=== PATIENT | female | born 1945 | race Caucasian/White ===

== ENCOUNTER 2018-07-08 15:01 | Inpatient (IN) | payer MEDICARE, OTHER ==
[~2018-07-08] VITALS: Ht 165.1 cm; Wt 67.1 kg
[2018-07-08] MEDS ORDERED: ASPIRIN 81 MG TABLET CHEW ONE (15:19)
[2018-07-08] MEDS ORDERED: ASPIRIN 81 MG TABLET CHEW PO ONE (15:30)
[2018-07-08] MEDS ORDERED: PLEASE ENTER HEIGHT AND WEIGHT MC SCH (15:30)
[2018-07-08] MEDS ORDERED: PLEASE ENTER ALLERGIES MC SCH (15:30)
--- NOTE | 2018-07-08 15:38 | NUR ---
patient safe in [facility], accompanied by significant other, lab and xray have been to bedside, patient reports 5/10 chest pain when laying on sides and back, but has noticed the pain sometimes subsides if laying on her stomach. onse was thursday night, no pain now sitting up in bed. VSS on room air, medicated with chewable ASA per AUG, PWD, conversant and pleasant, no additional needs at this time.
[2018-07-08 15:46] LABS: BASOPHILS # (AUTO) 0.06 x10^3/uL (0-0.1); BASOPHILS % (AUTO) 1 % (0-1); EOSINOPHILS % (AUTO) 1 % (1-7); LYMPHOCYTES # (AUTO) 1.67 x10^3/uL (1-3.4); LYMPHOCYTES % (AUTO) 23 % (22-44); MD NO; MEAN CORPUSCULAR HEMOGLOBIN 31.5 pg (27.0-34.8); MEAN CORPUSCULAR HGB CONC 34.1 g/dL (32.4-35.8); MEAN CORPUSCULAR VOLUME 92.4 fL (80-100); MEAN PLATELET VOLUME 7.5 fL (7.4-10.4); MONOCYTES # (AUTO) 0.44 x10^3/uL (0.2-0.8); MONOCYTES % (AUTO) 6 % (2-9); NEUTROPHILS # (AUTO) 4.99 x10^3/uL (1.8-6.8); NEUTROPHILS % (AUTO) 69 % (42-75); PLATELET COUNT 361 x10^3/uL (130-400); RED BLOOD COUNT 4.82 x10^6/uL (3.82-5.3); RED CELL DISTRIBUTION WIDTH 12.7 % (9.6-15.2)
[2018-07-08 15:59] LABS: ALBUMIN 4.2 g/dL (3.4-5.0); ANION GAP 8 mmol/L (5-15); CALCIUM 9.3 mg/dL (8.5-10.1); CHLORIDE 108 mmol/L (98-107)
[2018-07-08 16:04] LABS: ALANINE AMINOTRANSFERASE 26 U/L (12-78); ALKALINE PHOSPHATASE 68 U/L (45-117); BILIRUBIN,TOTAL 0.4 mg/dL (0.2-1.0); CREATININE 0.86 mg/dL (0.55-1.02); TOTAL PROTEIN 7.9 g/dL (6.4-8.2)
--- NOTE | 2018-07-08 16:10 | NUR ---
Troponin result relayed from Vickie to this RN, MD Connor has taken the patient, no acute changes noted/reported, patient remains safe in bed.
--- NOTE | 2018-07-08 16:36 | NUR ---
MD Connor at beside, VSS on room air, no acute changes, patients updated of troponin results
[2018-07-08] MEDS ORDERED: SODIUM CHLORIDE 0.9% 1,000 ML IV ONE (16:45)
[2018-07-08 17:12] LABS: HCT (SEDRATE) 44.4 % (34.6-47.8)
--- NOTE | 2018-07-08 17:19 | NUR ---
IV attempted and missed by this RN, Ultrasound IV to be started along with NS per MAR. Cardiology and Hospitalist to bedside in the last 10 minutes, no acute changes observed or reported, report given via phone to RN Nancy, all questions answered and patient aware of transfer plan.
[2018-07-08] MEDS ORDERED: POLYETHYLENE GLYCOL 17 GM PACKET PO PRN (17:30)
[2018-07-08] MEDS ORDERED: ENALAPRILAT 1.25 MG/ML, 2ML IVPush PRN (17:30)
[2018-07-08] MEDS ORDERED: NITROGLYCERIN 0.4 MG BOTTLE (25 TABS) SL PRN (17:30)
[2018-07-08] MEDS ORDERED: NITROGLYCERIN 0.4 MG/SPRAY SL PRN (17:30)
[2018-07-08] MEDS ORDERED: DOCUSATE 100 MG CAPSULE PO PRN (17:30)
[2018-07-08] MEDS ORDERED: BISACODYL 10 MG SUPP PR PRN (17:30)
[2018-07-08] MEDS ORDERED: GABAPENTIN 300 MG CAPSULE PO PRN (17:30)
[2018-07-08] MEDS ORDERED: morphine SULFATE 10 MG/ML, 1ML IVPush PRN (17:30)
[2018-07-08] MEDS ORDERED: hydrALAzine 20 MG/ML, 1ML IVPush PRN (17:30)
--- NOTE | 2018-07-08 17:49 | NUR ---
Ultrasound IV started by this RN, NS bolus running with OK from Hospitalist, patient reports she feels dehydrated, NPO status at this time, RTG status, no acute changes.
[2018-07-08 18:05] VITALS: BP 177/91
[2018-07-08] MEDS ORDERED: NITROGLYCERIN 0.4 MG/SPRAY ONE (18:10)
[2018-07-08] MEDS ORDERED: HEPARIN 25,000 UNITS/500ML PMX 500 ML ONE (18:10)
[2018-07-08 18:22] VITALS: BP 151/78
[2018-07-08 18:28] VITALS: BP 132/82
[2018-07-08 18:28] LABS: INTERNATIONAL NORMALIZED RATIO 0.96 (0.93-1.1); PROTHROMBIN TIME 10.2 Seconds (9.6-11.5)
[2018-07-08] MEDS ORDERED: HEPARIN 25,000 UNITS/500ML PMX 500 ML IV PRN (18:30)
[2018-07-08] MEDS ORDERED: HEPARIN 5,000 UNITS/ML, 1ML IV ONE (18:30)
[2018-07-08] MEDS ORDERED: HEPARIN 5,000 UNITS/ML, 1ML IV PRN (18:30)
[2018-07-08 20:47] VITALS: BP 120/81
[2018-07-08 21:15] LABS: HEMOGLOBIN A1C 5.4 % (4.2-6.3)
[2018-07-08] MEDS: ESTRO TP SCH (21:30)
[2018-07-08] MEDS: PROGESTERONE TP SCH (21:30)
[2018-07-08] MEDS: ACETAMINOPHEN 325 MG TABLET PO PRN (21:31)
[2018-07-08] MEDS ORDERED: ESTR50GE TP (23:47)
[2018-07-08] MEDS ORDERED: c-progesterone TP (23:47)
[2018-07-09 00:37] VITALS: BP 160/90
[2018-07-09] MEDS: ACETAMINOPHEN 325 MG TABLET PO PRN ×2 (05:42→13:39)
[2018-07-09 07:08] LABS: BASOPHILS # (AUTO) 0.07 x10^3/uL (0-0.1); BASOPHILS % (AUTO) 1 % (0-1); EOSINOPHILS # (AUTO) 0.11 x10^3/uL (0-0.4); EOSINOPHILS % (AUTO) 2 % (1-7); LYMPHOCYTES # (AUTO) 1.43 x10^3/uL (1-3.4); LYMPHOCYTES % (AUTO) 25 % (22-44); MD NO; MEAN CORPUSCULAR HEMOGLOBIN 30.8 pg (27.0-34.8); MEAN CORPUSCULAR HGB CONC 33.4 g/dL (32.4-35.8); MEAN CORPUSCULAR VOLUME 92.3 fL (80-100); MEAN PLATELET VOLUME 7.2 fL (7.4-10.4); MONOCYTES # (AUTO) 0.42 x10^3/uL (0.2-0.8); MONOCYTES % (AUTO) 7 % (2-9); NEUTROPHILS # (AUTO) 3.62 x10^3/uL (1.8-6.8); NEUTROPHILS % (AUTO) 64 % (42-75); PLATELET COUNT 317 x10^3/uL (130-400); RED CELL DISTRIBUTION WIDTH 12.4 % (9.6-15.2)
[2018-07-09 07:18] LABS: CHLORIDE 111 mmol/L (98-107)
[2018-07-09 07:31] LABS: ALANINE AMINOTRANSFERASE 24 U/L (12-78); ALBUMIN 3.4 g/dL (3.4-5.0); ALKALINE PHOSPHATASE 53 U/L (45-117); ANION GAP 7 mmol/L (5-15); BILIRUBIN,TOTAL 0.5 mg/dL (0.2-1.0); CALCIUM 8.8 mg/dL (8.5-10.1); CHOL/HDL RATIO 3.4; CHOLESTEROL, TOTAL 228 mg/dL (140-239); HDL CHOL % 30 % (28-40); HDL CHOLESTEROL (DIRECT) 68 mg/dL (40-60); LDL CHOLESTEROL,CALCULATED 143 mg/dL (54-169); LDL/HDL RATIO 2.1 (0.5-3.0); TOTAL PROTEIN 6.5 g/dL (6.4-8.2); TRIGLYCERIDES 84 mg/dL (50-200); VLDL CHOLESTEROL 17 mg/dL (0-25)
[2018-07-09 08:10] VITALS: BP 130/85
[2018-07-09] MEDS ORDERED: FENTANYL PF 100 MCG/2ML ONE (11:10)
[2018-07-09] MEDS ORDERED: MIDAZOLAM 1 MG/ML, 5ML ONE (11:10)
[2018-07-09] MEDS ORDERED: HEPARIN 1,000 UNITS/ML, 10ML ONE (11:11)
[2018-07-09] MEDS ORDERED: NITROGLYCERIN 5 MG/ML, 10ML ONE (11:11)
[2018-07-09] MEDS ORDERED: LIDOCAINE 2%, 20ML ONE (11:11)
[2018-07-09] MEDS ORDERED: VERAPAMIL 2.5 MG/ML, 2ML ONE (11:11)
[2018-07-09] MEDS ORDERED: BIVALIRUDIN 250 MG ONE (11:11)
[2018-07-09] MEDS ORDERED: PRASUGREL 10 MG TABLET ONE (11:47)
[2018-07-09] MEDS ORDERED: BIVALIRUDIN 250 MG in DEXTROSE 5% 100 ML IV SCH (12:10)
[2018-07-09] MEDS ORDERED: SODIUM CHLORIDE 0.9% 1,000 ML IV SCH (12:10)
[2018-07-09 15:50] VITALS: BP 132/88
[2018-07-09 19:46] VITALS: BP 113/70
[2018-07-09] MEDS: PROGESTERONE TP SCH (20:55)
[2018-07-09] MEDS: ESTRO TP SCH (20:55)
[2018-07-10 01:26] VITALS: BP 109/67
[2018-07-10 04:32] LABS: ANION GAP 8 mmol/L (5-15); CHLORIDE 109 mmol/L (98-107)
[2018-07-10 07:20] VITALS: BP 121/74
[2018-07-10] MEDS ORDERED: PRASUGREL 10 MG TABLET PO SCH (09:00)
[2018-07-10 12:23] VITALS: BP 157/83
[2018-07-10] MEDS ORDERED: ATOR40TA78 PO (15:19)
[2018-07-10] MEDS ORDERED: ASPI81TA45 PO (15:19)
[2018-07-10] MEDS ORDERED: PRAS10TA4 PO (15:19)
[2018-07-10] MEDS ORDERED: ATORVASTATIN 40 MG TABLET PO SCH (21:00)
[2018-07-11] MEDS ORDERED: ASPIRIN 81 MG TABLET EC PO SCH (06:00)
== END 2018-07-10 15:56 | disposition home or self-care (01) | DRG 246 ==
LOC: ED 16:30 → EDIP 16:46 → UNDOADMIN 17:24 → 5SO 18:08
PROVIDERS: ADMIT Hospitalist; ATTEND Hospitalist
PROC: 4A023N7 Measurement of Cardiac Sampling and Pressure, Left Heart, Percutaneous Approach (ICD-10-PCS; principal; 2018-07-09)
PROC: 027034Z Dilation of Coronary Artery, One Artery with Drug-eluting Intraluminal Device, Percutaneous Approach (ICD-10-PCS; 2018-07-09)
PROC: B2111ZZ Fluoroscopy of Multiple Coronary Arteries using Low Osmolar Contrast (ICD-10-PCS; 2018-07-09)
PROC: B2151ZZ Fluoroscopy of Left Heart using Low Osmolar Contrast (ICD-10-PCS; 2018-07-09)
DX: I21.4 Non-ST elevation (NSTEMI) myocardial infarction (principal); I50.33 Acute on chronic diastolic (congestive) heart failure; I10 Essential (primary) hypertension; E78.5 Hyperlipidemia, unspecified; E78.00 Pure hypercholesterolemia, unspecified; I25.10 Atherosclerotic heart disease of native coronary artery without angina pectoris; Z87.891 Personal history of nicotine dependence; Z90.710 Acquired absence of both cervix and uterus; Z98.51 Tubal ligation status; I25.2 Old myocardial infarction; I11.0 Hypertensive heart disease with heart failure
CPT/HCPCS: 36415; 71045; 74160; 76700; 80048; 80053; 80061; 83036; 83690; 83735; 83880; 84100; 84443; 84484; 85025; 85520; 85610; 85651; 86140; 93005; 93306; 93458; 96361; 96374; 99156; 99157; C1769; C1894; C9600; G0378; J0583; J1644; J2250; J3010; J3490; C1725; C1874; C1887; J7030; Q9967

== ENCOUNTER 2018-09-14 09:52 | Outpatient (CLI) | payer MEDICARE, OTHER ==
[~2018-09-14 09:52] MED LIST: ASPI81TA45 PO; ATOR40TA78 PO; ESTR50GE TP; PRAS10TA4 PO; c-progesterone TP
== END 2018-09-14 23:59 | disposition home or self-care (01) ==
LOC: CFH 09:52
PROVIDERS: ATTEND Internal Medicine Gastroenterology
DX: D49.0 Neoplasm of unspecified behavior of digestive system (principal)
CPT/HCPCS: 74183; 82565; A9585

== ENCOUNTER → 2018-11-01 | Outpatient (CLI) | payer MEDICARE, OTHER | END | disposition home or self-care (01) | LOC: RAD 11:36 | PROVIDERS: ATTEND Internal Medicine Hematology & Oncology | DX: C25.9 Malignant neoplasm of pancreas, unspecified (principal) | CPT/HCPCS: 36573; C1751 ==

== ENCOUNTER → 2019-05-27 | Outpatient (CLI) | payer MEDICARE, OTHER ==
[~2019-05-27] MED LIST changes: +GADOTERATE 5 MMOL/10 ML VIAL ONE
== END | disposition home or self-care (01) ==
LOC: CFH 09:44
PROVIDERS: ATTEND Internal Medicine Hematology & Oncology
DX: C25.9 Malignant neoplasm of pancreas, unspecified (principal); R91.1 Solitary pulmonary nodule; J98.11 Atelectasis; R91.8 Other nonspecific abnormal finding of lung field
CPT/HCPCS: 71046; 74183; A9575

== ENCOUNTER 2020-12-15 08:23 | Inpatient (IN) | payer MEDICARE, OTHER ==
[~2020-12-15] VITALS: Ht 165.1 cm; Wt 65.2 kg
[~2020-12-15 08:23] MED LIST changes: -GADOTERATE 5 MMOL/10 ML VIAL ONE
--- NOTE | 2020-12-15 08:23 | NUR ---
PT ARRIVED FROM HOME VIA [facility] AFTER EXPERIENCING GRADUAL ONSET OF PRESSURE LIKE CHEST PAIN WHILE STARTING HER DAY BY DOING LAUNDRY AND MAKING COFFEE. 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 CHEST PAIN IS 5/10. TIME OF ARRIVAL OF PT WAS 819 AND EKG DONE IMMEDIATELY. DR. HACKETT, CRADIOLOGY AND DR. LOPEZ AT BEDSIDE ON ARRIVAL. TRADING ASSISTANT IS NOT READY AT THIS TIME, JUST FINISHING PRIOR CASE. WAITNG ON ROOM TO BE STAT CLEANED.
[2020-12-15] MEDS ORDERED: ASPIRIN 325 MG TABLET PO STA (08:25)
[2020-12-15] MEDS ORDERED: PLEASE ENTER HEIGHT AND WEIGHT MC SCH (08:30)
[2020-12-15] MEDS ORDERED: FENTANYL PF 100 MCG/2ML ONE (08:31)
[2020-12-15] MEDS ORDERED: MIDAZOLAM 1 MG/ML, 2ML ONE ×2 (08:31→09:38)
[2020-12-15] MEDS ORDERED: TICAGRELOR 90 MG TABLET ONE (08:31)
[2020-12-15] MEDS ORDERED: BIVALIRUDIN 250 MG ONE (08:32)
[2020-12-15] MEDS ORDERED: LIDOCAINE 1%, 20ML ONE (08:32)
[2020-12-15] MEDS ORDERED: VERAPAMIL 2.5 MG/ML, 2ML ONE (08:40)
--- NOTE | 2020-12-15 08:40 | NUR ---
STUDIO OPERATIONS MANAGER READY PER AQUATIC DIRECTOR. PT TRANSPORTED TO STUDIO OPERATIONS MANAGER.
[2020-12-15] MEDS ORDERED: GING500C PO (08:48)
[2020-12-15] MEDS ORDERED: ASTA4CAP PO (08:48)
[2020-12-15] MEDS ORDERED: [UNRECOGNIZED DRUG - OTHER] PO (08:48)
[2020-12-15] MEDS ORDERED: [UNRECOGNIZED DRUG - OTHER] PO (08:48)
[2020-12-15] MEDS ORDERED: THYR15TA PO (08:48)
[2020-12-15] MEDS ORDERED: [UNRECOGNIZED DRUG - OTHER] PO (08:48)
[2020-12-15] MEDS ORDERED: METHYLCOBALAMIN PO (08:48)
[2020-12-15] MEDS ORDERED: L-TYROSINE PO (08:48)
[2020-12-15] MEDS ORDERED: BERBERINE PO (08:48)
[2020-12-15] MEDS ORDERED: [UNRECOGNIZED DRUG - OTHER] (08:48)
[2020-12-15] MEDS ORDERED: MILK175C5 PO (08:48)
[2020-12-15] MEDS ORDERED: TRI-IODINE PO (08:48)
[2020-12-15] MEDS ORDERED: C STATIN PO (08:48)
[2020-12-15] MEDS ORDERED: PRAS1TAB PO (08:48)
[2020-12-15] MEDS ORDERED: ACET600C5 PO (08:48)
[2020-12-15] MEDS ORDERED: [UNRECOGNIZED DRUG - OTHER] PO (08:48)
[2020-12-15] MEDS ORDERED: MAGN400T36 PO (08:48)
[2020-12-15] MEDS ORDERED: POTA99TA24 PO (08:48)
[2020-12-15] MEDS ORDERED: GENI30TA PO (08:48)
[2020-12-15] MEDS ORDERED: TURM1POW2 PO (08:48)
[2020-12-15 08:51] LABS: BASOPHILS % (AUTO) 1 % (0-1); EOSINOPHILS % (AUTO) 1 % (1-7); LYMPHOCYTES % (AUTO) 19 % (22-44); MEAN CORPUSCULAR HEMOGLOBIN 31.4 pg (27.0-34.8); MONOCYTES % (AUTO) 7 % (2-9); NEUTROPHILS % (AUTO) 73 % (42-75); PLATELET COUNT 262 x10^3/uL (130-400); RED BLOOD COUNT 4.71 x10^6/uL (3.82-5.3); RED CELL DISTRIBUTION WIDTH 12.5 % (9.6-15.2)
[2020-12-15 08:58] LABS: PROTHROMBIN TIME 10.7 Seconds (9.6-11.5)
[2020-12-15] MEDS ORDERED: R LIPOIC ACID PO (09:11)
[2020-12-15] MEDS ORDERED: OLIV250C PO (09:11)
[2020-12-15] MEDS ORDERED: NITRIC OXIDE PO (09:11)
[2020-12-15] MEDS ORDERED: [UNRECOGNIZED DRUG - OTHER] PO (09:11)
[2020-12-15] MEDS ORDERED: SOYB50CA PO (09:11)
[2020-12-15] MEDS ORDERED: RELIZEN PO (09:11)
[2020-12-15] MEDS ORDERED: TRACE MINERALS PO (09:11)
[2020-12-15] MEDS ORDERED: VITAMIND PO (09:15)
[2020-12-15] MEDS ORDERED: [UNRECOGNIZED DRUG - OTHER] PO (09:15)
[2020-12-15] MEDS ORDERED: ZINC PICOLINATE PO (09:15)
[2020-12-15] MEDS ORDERED: ASCO100018 PO (09:15)
[2020-12-15] MEDS ORDERED: VITAMIN E PO (09:15)
[2020-12-15] MEDS ORDERED: VITAMIN B PO (09:15)
[2020-12-15] MEDS ORDERED: ONDANSETRON ODT 4 MG PO PRN (09:30)
[2020-12-15] MEDS ORDERED: ONDANSETRON 2MG/ML, 2ML IVPush PRN (09:30)
[2020-12-15] MEDS ORDERED: ACETAMINOPHEN 325 MG TABLET PO PRN ×2 (09:30→11:00)
[2020-12-15] MEDS ORDERED: morphine SULFATE 10 MG/ML, 1ML IVPush PRN (09:30)
[2020-12-15] MEDS ORDERED: hydrALAzine 20 MG/ML, 1ML IV PRN (11:00)
[2020-12-15] MEDS ORDERED: ONDANSETRON 2MG/ML, 2ML IV PRN (11:00)
[2020-12-15 11:35] LABS: ANION GAP 11 mmol/L (5-15); CALCIUM 9.1 mg/dL (8.5-10.1); CHLORIDE 110 mmol/L (98-107); CREATININE 0.85 mg/dL (0.55-1.02)
[2020-12-15] MEDS: ATORVASTATIN 80 MG TABLET PO SCH (20:13)
[2020-12-15] MEDS ORDERED: MELATONIN 5 MG TABLET PO PRN (21:00)
[2020-12-16 03:02] LABS: BASOPHILS % (AUTO) 1 % (0-1); EOSINOPHILS % (AUTO) 1 % (1-7); LYMPHOCYTES % (AUTO) 15 % (22-44); MEAN CORPUSCULAR HEMOGLOBIN 31.8 pg (27.0-34.8); MEAN CORPUSCULAR HGB CONC 34.8 g/dL (32.4-35.8); MEAN PLATELET VOLUME 7.1 fL (7.4-10.4); MONOCYTES % (AUTO) 8 % (2-9); NEUTROPHILS % (AUTO) 76 % (42-75); PLATELET COUNT 240 x10^3/uL (130-400); RED BLOOD COUNT 4.56 x10^6/uL (3.82-5.3); RED CELL DISTRIBUTION WIDTH 12.5 % (9.6-15.2)
[2020-12-16 03:14] LABS: ANION GAP 8 mmol/L (5-15); CALCIUM 8.8 mg/dL (8.5-10.1); CHLORIDE 110 mmol/L (98-107); CHOLESTEROL, TOTAL 231 mg/dL (140-239); CREATININE 0.68 mg/dL (0.55-1.02); TRIGLYCERIDES 89 mg/dL (50-200); VLDL CHOLESTEROL 18 mg/dL (0-25)
[2020-12-16 03:24] LABS: CHOL/HDL RATIO 3.2; HDL CHOL % 32 % (28-40); HDL CHOLESTEROL (DIRECT) 73 mg/dL (40-60); LDL CHOLESTEROL,CALCULATED 140 mg/dL (54-169); LDL/HDL RATIO 1.9 (0.5-3.0)
[2020-12-16] MEDS: THYROID 30 MG TABLET PO SCH (06:09)
[2020-12-16] MEDS: ASPIRIN 81 MG TABLET CHEW PO SCH (08:07)
[2020-12-16] MEDS: TICAGRELOR 90 MG TABLET PO SCH ×2 (08:07→20:52)
[2020-12-16] MEDS: CARVEDILOL 3.125 MG TABLET PO SCH ×2 (09:16→17:32)
[2020-12-16 14:07] VITALS: BP 118/76
[2020-12-16 15:38] VITALS: BP 107/72
[2020-12-16 18:58] VITALS: BP 122/76
[2020-12-16] MEDS: ATORVASTATIN 80 MG TABLET PO SCH (20:52)
[2020-12-17 01:05] VITALS: BP 103/64
[2020-12-17 02:49] VITALS: BP 113/68
[2020-12-17] MEDS: THYROID 30 MG TABLET PO SCH (05:29)
[2020-12-17] MEDS: CARVEDILOL 3.125 MG TABLET PO SCH (05:29)
[2020-12-17 06:51] VITALS: BP 102/62
[2020-12-17] MEDS: TICAGRELOR 90 MG TABLET PO SCH (08:17)
[2020-12-17] MEDS: ASPIRIN 81 MG TABLET CHEW PO SCH (08:17)
[2020-12-17] MEDS ORDERED: CARV3.1212 PO (08:35)
[2020-12-17] MEDS ORDERED: PRAS10TA4 PO (08:35)
[2020-12-17] MEDS ORDERED: ASPI-963 PO (08:35)
[2020-12-17] MEDS ORDERED: PRAV20TA2 PO (08:35)
== END 2020-12-17 11:20 | disposition home or self-care (01) | DRG 246 ==
LOC: SUATTDRO 08:50 → ED 08:50 → EDIP 08:57 → CCU 10:19 → 5SO 12-16 15:30 → DCLOUNGE 12-17 11:04
PROVIDERS: ADMIT Internal Medicine Cardiovascular Disease; ATTEND Internal Medicine
PROC: 4A023N7 Measurement of Cardiac Sampling and Pressure, Left Heart, Percutaneous Approach (ICD-10-PCS; principal; 2020-12-15)
PROC: 027036Z Dilation of Coronary Artery, One Artery with Three Drug-eluting Intraluminal Devices, Percutaneous Approach (ICD-10-PCS; 2020-12-15)
PROC: B2111ZZ Fluoroscopy of Multiple Coronary Arteries using Low Osmolar Contrast (ICD-10-PCS; 2020-12-15)
PROC: B2151ZZ Fluoroscopy of Left Heart using Low Osmolar Contrast (ICD-10-PCS; 2020-12-15)
PROC: B240ZZ3 Ultrasonography of Single Coronary Artery, Intravascular (ICD-10-PCS; 2020-12-15)
DX: I21.19 ST elevation (STEMI) myocardial infarction involving other coronary artery of inferior wall (principal); I50.33 Acute on chronic diastolic (congestive) heart failure; I25.10 Atherosclerotic heart disease of native coronary artery without angina pectoris; E78.00 Pure hypercholesterolemia, unspecified; I21.29 ST elevation (STEMI) myocardial infarction involving other sites; I25.2 Old myocardial infarction; E78.5 Hyperlipidemia, unspecified; Z90.710 Acquired absence of both cervix and uterus; Z91.19 Patient's noncompliance with other medical treatment and regimen; Z30.2 Encounter for sterilization; Z20.822 Contact with and (suspected) exposure to COVID-19
CPT/HCPCS: 36415; 71045; 80047; 80048; 80061; 84443; 84484; 85025; 85610; 85730; 87081; 87635; 92973; 92978; 93005; 93306; 93458; 99156; 99157; 99291; C1753; C1769; C1894; G0378; J0583; J2250; J3010; C1725; C1757; C1874; C1887; Q9967